=== PATIENT | female | born 1965 | race Caucasian/White ===

== ENCOUNTER 2024-01-24 10:43 | Outpatient (CLI) | payer OTHER | END 2024-01-24 10:44 | disposition home or self-care (01) | LOC: CSHMAMMO 10:43 | PROVIDERS: ATTEND Physician Assistant | DX: Z12.31 Encounter for screening mammogram for malignant neoplasm of breast (principal); E04.2 Nontoxic multinodular goiter; M85.88 Other specified disorders of bone density and structure, other site; M81.0 Age-related osteoporosis without current pathological fracture; Z78.0 Asymptomatic menopausal state | CPT/HCPCS: 76536; 77063; 77067; 77080 ==